=== PATIENT | female | born 1995 | race Caucasian/White ===

== ENCOUNTER 2017-03-12 10:35 | Emergency (ER) | payer OTHER ==
[~2017-03-12] VITALS: Ht 149.9 cm; Wt 50.2 kg
[2017-03-12 10:40] VITALS: TEMP 37.3; Ht 149.9 cm; Wt 50.2 kg
--- NOTE | 2017-03-12 10:59 | EMERGENCY ROOM VISIT NOTE ---
History Report prepared by John: King Dutton Under the Supervision of: Dr. Jeffrey Steven M.D. First contact with patient: 10:47 Chief Complaint: CALF PAIN Stated Complaint: TENDERNESS IN CALF History of Present Illness The patient is a 21 year old female who presents to the Emergency Room with complaints of intermittent bilateral calf tenderness beginning a few days ago. The patient states her right calf hurts more than her left. She reports she was evaluated by her PCP today for sinus congestion. The patient notes she was sent to the ED for an ultrasound because she expressed pain calves. She states she takes oral control and has developed a headache that she attributes to sinus congestion. The patient reports she exercises frequently, but she has not changed her work out routine. The patient denies a history of smoking, history of blood clots, recent travel, chest pain, shortness of breath, abdominal pain, recent injury, the chance of , other muscle soreness, and back pain. Source of History: patient Onset: A few days ago. Position: leg (bilateral) Quality: other (right more than left) Timing: constant Associated Symptoms: + headache, No chest pain, No SOB, No abdominal pain, No back pain Note: Associated Symptoms: Currently takes oral control. Denies: Recent injury, chance of , other muscle soreness, recent travel. Review of Systems See HPI for pertinent positives & negatives. A total of 10 systems reviewed and were otherwise negative. Past Medical & Surgical Medical Problems: (1) No Known Active Medical Problems Old medical records were attempted to be reviewed but there are no old records at this hospital. Nurse's notes were reviewed and I agree with. Family History Patient reports no known family medical history. Social History Smoking Status: Never Smoker Occupation Status: [employer] student Current/Historical Medications Scheduled Acetaminophen (Tylenol), 650 MG PO UD Control Pills ( Control Pills), 1 TAB PO DAILY Allergies Uncoded Allergies: SEASONAL (Allergy, Intermediate, RUNNY NOSE/SNEEZING, 03/12/17) Physical Exam Vital Signs Date Time Temp Pulse Resp B/P (MAP) Pulse Ox O2 Delivery O2 Flow Rate FiO2 03/12/17 12:19 84 16 120/83 99 03/12/17 10:40 37.3 87 16 127/70 96 Room Air Physical Exam General: Non-ill appearing young female in no acute distress. HEENT: Normal cephalic atraumatic. Pupils are equal round and reactive to light. Extraocular movements are intact. Oropharynx is pink with moist mucous membranes. No swelling of the mouth lips or tongue. Neck: Supple with a midline trachea. No meningeal signs or stiffness, no JVD or bruits. No Stridor. Chest: Clear to auscultation bilaterally. No wheezes or rhonchi. No increased work of breathing. Heart: regular rate and rhythm. Abdomen: Soft nontender, nondistended without rebound guarding or rigidity. Extremities: No cyanosis clubbing or edema. Minimal tenderness to palpation of right calf; no redness or warmth. Normal Achilles, normal motor function and pulse exams. No calf assymetry. Spine/Back. Non tender to palpation. No CVA tenderness Skin: Good turgor without rashes. Neurologic exam: Cranial nerves two through 12 are intact. Motor and sensation are intact and symmetrical throughout. Medical Decision & Procedures ER Provider Diagnostic Interpretation: Radiology results as stated below per my review and radiologist interpretation: BILATERAL LOWER EXTREMITY VENOUS DOPPLER CLINICAL HISTORY: Bilateral calf pain. COMPARISON STUDY: No previous studies for comparison. TECHNIQUE: Sonography of the deep venous system of the bilateral lower extremities was performed. Compression and augmentation were evaluated. FINDINGS: The bilateral common femoral, superficial femoral and popliteal veins were compressible. Augmentation was normal. Flow was shown within the deep calf vessels. IMPRESSION: No evidence of deep venous thrombus within the bilateral lower extremities. Electronically signed by: Primo Hernandes M.D. 03/12/2017 11:41 AM Dictated Date/Time: 03/12/2017 11:40 AM ED Course 1047: Past medical records reviewed. The patient was evaluated in room C11B, and a complete history and physical examination were performed. 1218: Upon reevaluation, the patient is resting comfortably. I discussed the results and treatment plan with the patient. she verbalized agreement of the treatment plan. The patient was discharged home. Medical Decision Differentials include, but are not limited to; DVT, Musculoskeletal, Vascular Disease. This patient comes in as described above. She said over from her doctor's office after she complained that her calf was tender on the right. She was seen there for URI type symptoms and had a calf tenderness. She has no swelling and on exam has minimal tenderness and says the left may also be mildly tender. She has no other muscle tenderness . she's had no significant workout or anything to suggest rhabdo. No urinary symptoms. No chest pain or shortness of breath. No history of travel or DVT. She is on oral contraceptives. I did ultrasounds of both her legs they were negative. She is reassured that she does not have a DVT this may more muscular such as a strain and she will be discharged home she was encouraged to return if: Worsening of symptoms, shortness of breath, any new problems concerns. She is happy the plan and discharged to home. Impression Primary Impression: Bilateral calf pain Scribe Attestation The scribe's documentation has been prepared under my direction and personally reviewed by me in its entirety. I confirm that the note above accurately reflects all work, treatment, procedures, and medical decision making performed by me. Departure Information Dispostion Home / Self-Care Referrals No Doctor, Assigned (PCP) Forms HOME CARE DOCUMENTATION FORM, IMPORTANT VISIT INFORMATION Patient Instructions My [facility] Additional Instructions Rest. Use ibuprofen 400 mg every 6 hours if needed Return if increasing pain, worsening of symptoms, fever or chills, numbness or weakness, any new problems or concerns Follow-up with your doctor this week if not 100% better or return to ER symptoms worsen
[2017-03-12] MEDS ORDERED: BCPILLS PO (11:10)
[2017-03-12] MEDS ORDERED: ACET325T95 PO (11:11)
--- NOTE | 2017-03-12 11:42 | DIAGNOSTIC IMAGING REPORT ---
BILATERAL LOWER EXTREMITY VENOUS DOPPLER CLINICAL HISTORY: Bilateral calf pain. COMPARISON STUDY: No previous studies for comparison. TECHNIQUE: Sonography of the deep venous system of the bilateral lower extremities was performed. Compression and augmentation were evaluated. FINDINGS: The bilateral common femoral, superficial femoral and popliteal veins were compressible. Augmentation was normal. Flow was shown within the deep calf vessels. IMPRESSION: No evidence of deep venous thrombus within the bilateral lower extremities. Electronically signed by: Primo Hernandes M.D. 03/12/2017 11:41 AM Dictated Date/Time: 03/12/2017 11:40 AM
[2017-03-12 12:19] VITALS: BP 120/83; PULSE 84; O2SAT 99
== END 2017-03-12 12:20 | disposition home or self-care (01) ==
LOC: C.EDB 10:37 → C.EDC 12:20
DX: M79.661 Pain in right lower leg (principal); M79.662 Pain in left lower leg; Z79.3 Long term (current) use of hormonal contraceptives